=== PATIENT | male | born 1995 | race Caucasian/White ===

== ENCOUNTER 2017-02-08 16:54 | Observation (INO) | payer OTHER, SELFPAY ==
[~2017-02-08 16:54] MED LIST: ISOVUE-370 76%-LOCM 1 ML ONE; Iopamidol 370 76% 50 ML VIAL FS ONE
[2017-02-08 17:57] LABS: #Basophils 0.1 thou/uL (0.0-0.2); #Eosinphils 0.3 thou/uL (0.0-0.7); #Lymphocytes 2.7 thou/uL (1.20-3.40); #Monocytes 0.4 thou/uL (0.11-0.59); #Neutrophils 3.9 thou/uL (1.40-6.50); %Eosinophils 3.7 % (0.0-10.0); %Lymphocytes 36.4 % (21.0-51.0); Hematocrit 47.2 % (42.0-52.0); Mean Platelet Volume 9.6 fL (7.4-10.4); Red Blood Cell (RBC) Count 5.44 mill/uL (4.70-6.10); White Blood Cell (WBC) Count 7.4 thou/uL (4.8-10.8)
[2017-02-08 18:04] LABS: Prothrombin Time 13.2 SEC (12.0-14.7)
[2017-02-08 18:17] LABS: Lactic Acid - Sepsis 1.5 mmol/L (0.5-2.2)
[2017-02-08 18:29] LABS: ALT (SGPT) 93 U/L (8-55); AST (SGOT) 42 U/L (5-34); Alkaline Phosphatase 81 U/L (40-150); Anion Gap 9 mmol/L (10-20); BUN (Urea Nitrogen) 10 mg/dL (8.9-20.6); Bilirubin, Total 0.7 mg/dL (0.2-1.2); CK (CPK) 71 U/L (30-200); Calc. Creatinine Clearance 0 mL/min (70-130); Calcium 9.3 mg/dL (7.8-10.44); Carbon Dioxide 28 mmol/L (22-29); Chloride 104 mmol/L (98-107); Estimated GFR-MDRD Greater than 90; Globulin 3.2 g/dL (2.4-3.5); Protein, Total 7.5 g/dL (6.0-8.3)
--- NOTE | 2017-02-08 20:16 | CT ---
CT ABDOMEN AND PELVIS WITH IV CONTRAST 02/08/17 HISTORY: Rectal bleeding and abdominal pain. COMPARISON: None available. FINDINGS: There is mild enlargement of the spleen in AP dimensions, but this may be within normal limits for t he patient as the spleen is not enlarged in craniocaudal dimensions. AP dimension of the spleen bijan ures 15 cm. The lung bases, liver, pancreas, bilateral adrenal glands, kidneys, abdominal aorta, opacified small bowel, and urinary bladder demonstrate a normal CT appearance. The appendix is normal in caliber without CT evidence of appendicitis. There is suggested thickening involving the proximal ascending colon, but this is probably related to incomplete distention. No o bvious mass is appreciated in this region on CT evaluation. IMPRESSION: 1. No acute findings are seen in the abdomen or pelvis. 2. Suggested thickening of the ribeiro of most proximal ascending colon which is most likely attr ibutable to incomplete distention. The appendix is normal in caliber. POS: [facility]
[2017-02-08 22:21] VITALS: BMI 31.0
[2017-02-08] MEDS ORDERED: Ondansetron HCl/PF 4 MG/2 ML Vial IVP PRN (22:33)
[2017-02-08] MEDS ORDERED: Ondansetron ODT 4 MG TAB SL PRN (22:33)
[2017-02-09] MEDS ORDERED: Ondansetron ODT 4 MG TAB PO PRN (00:19)
[2017-02-09] MEDS ORDERED: Ondansetron HCl/PF 4 MG/2 ML Vial IVP PRN (00:19)
[2017-02-09] MEDS ORDERED: Acetaminophen 500 MG TAB PO PRN (00:19)
--- NOTE | 2017-02-09 01:43 | HP ---
DATE OF ADMISSION: 02/09/2017 PRIMARY CARE PROVIDER: Bharath Gonzalez M.D. CHIEF COMPLAINT: Blood in stool. HISTORY OF PRESENT ILLNESS: This is a 22-year-old male with a history of Henoch-Schonlein purpura or immunoglobulin A vasculitis who presents with bright red blood per rectum. The patient states he spontaneously had blood per rectum with some abdominal pain and cramping. The patient sta roddy he has never had anything similar to this episode. No prior colonoscopy or endoscopy and denies any chronic medication use. The patient does states his last treatment for his HSP with prednisone . Approximately 4 years prior to this evaluation after he noted multiple skin lesions. The patient denies any recent trauma, injury, travel history, diarrhea, fever, chills, dysuria or hematuria. T he patient denies any chronic anticoagulation use or exposure. The patient denies any specific richard ge to his appetite level, known colon disease or peptic ulcers. In the emergency room, the patient underwent general evaluation including CT of the abdomen and pelvis showing no acute findings. Init ial hemoglobin assessment showed a value of 16.1. The patient was noted with guaiac positive stool. PAST MEDICAL HISTORY: Henoch-Schonlein purpura. PAST SURGICAL HISTORY: Reviewed and negative. CURRENT MEDICATIONS: Reviewed and negative. ALLERGIES: NSAIDs. FAMILY HISTORY: No inheritable diseases as per patient report. SOCIAL HISTORY: Resides in [facility] [place]. 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 Alcohol use socially. No to bacco or illicit drug use. REVIEW OF SYSTEMS: The following complete review of systems was negative, unless otherwise mentione d in the HPI or below: Constitutional: Weight loss or gain, ability to conduct usual activities. Skin: Rash, itching. Eyes: Double vision, pain. ENT/Mouth: Nose bleeding, neck stiffness, pain, tenderness. Cardiovascular: Palpitations, dyspnea on exertion, orthopnea. Respiratory: Shortness of breath, wheezing, cough, hemoptysis, fever or night sweats. Gastrointestinal: Poor appetite, abdominal pain, heartburn, nausea, vomiting, constipation, or diar pamela. Genitourinary: Urgency, frequency, dysuria, nocturia. Musculoskeletal: Pain, swelling. Neurologic/Psychiatric: Anxiety, depression. Allergy/Immunologic: Skin rash, bleeding tendency. Otherwise, negative except as stated per HPI. PHYSICAL EXAMINATION: VITAL SIGNS: On admission, blood pressure 133/93, pulse 92, respiratory rate 16, temperature 98.1 d egrees Fahrenheit, O2 saturation 98% on room air. GENERAL APPEARANCE: This is a 22-year-old male, alert and oriented x3, pleasant, conversa nt, in no acute distress. HEENT: Pupils are equal, round, and reactive to light and accommodation. Extraocular muscles are i ntact. No scleral icterus, no conjunctival injection. Nares patent. OP is clear. Teeth in good r epair. NECK: Supple, no cervical adenopathy, no thyromegaly, no carotid bruits, no JVD appreciated. Cervi bertrand spine with full active and passive range of motion. CHEST: Lungs are clear to auscultation bilaterally. CARDIOVASCULAR: S1, S2, without noted murmur. ABDOMEN: Rounded with mild tenderness to palpation in the right and left lower quadrants. Bowel so unds are positive in all four quadrants. There is no palpable mass. No rebound or guarding noted. EXTREMITIES: Warm and dry with good turgor. No clubbing, cyanosis or asymmetric edema appreciated. Pulses palpable distally at the dorsalis pedis, posterior tibial, and popliteal arteries bilateral ly. Capillary refill less than 2 seconds. NEUROLOGIC: Cranial nerves II-XII are grossly intact. No focal or lateralizing signs appreciated. SKIN: No focal lesions or evidence of purpura. PERTINENT LABORATORY DATA AND X-RAY FINDINGS: Basic metabolic profile within normal limits. AST 42 , ALT of 93, alkaline phosphatase 81. Total CK of 71. Albumin 4.3. Lactic acid level 1.5. CBC wi thin normal limits. PT 13.2, INR 1.0, PTT 28.0. Stool Hemoccult positive x1. CT of the abdomen an d pelvis dated 02/08/2017 showed no acute process. ASSESSMENT AND PLAN: 1. Rectal bleeding. Exact etiology unclear. We will continue to monitor for recurrence. Initial hemoglobin 16.1. Questionable relationship to Henoch-Schonlein purpura. Consider GI consultation i f the patient has recurrence. The patient may need outpatient endoscopy if recurring. Avoid antico agulation and NSAIDs. 2. Abdominal pain. Suspect secondary to rectal bleeding. We will continue symptomatic and support emelina management. 3. Transaminitis. We will repeat LFTs in the a.m. 4. History of Henoch-Schonlein purpura. Stable currently. We will continue to monitor clinically. Questionable exacerbation. 5. Prophylaxis. Sequential compression devices while in bed. Pepcid 20 mg p.o. b.i.d. 6. Code status is FULL. Surrogate medical decision maker is the patient's mother.
[2017-02-09 05:32] LABS: Hematocrit 47.6 % (42.0-52.0); Mean Platelet Volume 9.4 fL (7.4-10.4); Neutrophil 54 % (42-75); Reactive Lymphocytes 4 % (0-10); Red Blood Cell (RBC) Count 5.47 mill/uL (4.70-6.10); White Blood Cell (WBC) Count 7.3 thou/uL (4.8-10.8)
[2017-02-09 05:37] LABS: Anion Gap 13 mmol/L (10-20); BUN (Urea Nitrogen) 10 mg/dL (8.9-20.6); Calc. Creatinine Clearance 204 mL/min (70-130); Carbon Dioxide 23 mmol/L (22-29); Chloride 105 mmol/L (98-107); Estimated GFR-MDRD Greater than 90
[2017-02-09 05:38] LABS: ALT (SGPT) 93 U/L (8-55); AST (SGOT) 39 U/L (5-34); Alkaline Phosphatase 83 U/L (40-150); Bilirubin, Total 0.8 mg/dL (0.2-1.2); Calcium 9.5 mg/dL (7.8-10.44); Globulin 3.1 g/dL (2.4-3.5); Protein, Total 7.3 g/dL (6.0-8.3)
[2017-02-09] MEDS ORDERED: Famotidine 20 MG TAB PO SCH (09:00)
[2017-02-09 10:00] LABS: Bilirubin Negative (Negative); Blood, Urine Negative (Negative); Glucose, Urine (Dipstick) Negative (Negative); Ketone, Urine Negative (Negative); Nitrite Negative (Negative); Protein, Urine (Dipstick) Negative (Neg-Trace); Urobilinogen 0.2 mg/dL (0.2-1.0)
--- NOTE | 2017-02-09 14:30 | PDOC.PN ---
- Subjective Encounter Start Date: 02/09/17 Encounter Start Time: 14:28 Patient seen and examined. No new complaints. No overnight events. No new episode of GI bleed. - Objective Resuscitation Status: Resuscitation Status FULL:Full Resuscitation MAR Reviewed: Yes Vital Signs & Weight: Vital Signs (12 hours) Temp Pulse Resp BP BP Pulse Ox 02/09/17 11:07 98.3 F 86 12 121/78 94 L 02/09/17 07:52 98.7 F 75 16 02/09/17 07:18 98.7 F 75 16 117/69 95 02/09/17 05:00 97.8 F 76 14 117/68 98 Weight Weight 222 lb 12.8 oz I&O: 02/08/17 02/09/17 02/10/17 06:59 06:59 06:59 Intake Total 250 Balance 250 Result Diagrams: 02/09/17 04:46 02/09/17 04:46 Phys Exam - Physical Examination Constitutional: NAD Respiratory: no wheezing, no rhonchi Cardiovascular: RRR, no rub Gastrointestinal: soft, non-tender, positive bowel sounds Musculoskeletal: no edema Neurological: moves all 4 limbs Dx/Plan (1) GI bleed Code(s): K92.2 - GASTROINTESTINAL HEMORRHAGE, UNSPECIFIED Status: Acute (2) Abdominal pain Code(s): R10.9 - UNSPECIFIED ABDOMINAL PAIN Status: Acute Comment: improved (3) HSP (Henoch Schonlein purpura) Code(s): D69.0 - ALLERGIC PURPURA Status: Chronic (4) Obesity (BMI 30.0-34.9) Code(s): E66.9 - OBESITY, UNSPECIFIED Status: Chronic (5) Abnormal LFTs Code(s): R79.89 - OTHER SPECIFIED ABNORMAL FINDINGS OF BLOOD CHEMISTRY Status : Acute Comment: ?fatty liver - Plan cont current plan of care, DVT proph w/SCDs * Await GI input * CT abd - neg * Change diet to clear liqd * DC later today if ok with GI Review of Systems - Review of Systems Respiratory: negative: Cough, Dry, Shortness of Breath, Hemoptysis, SOB with Excertion, Pleuritic Pain, Sputum, Wheezing Cardiovascular: negative: Chest Pain, Palpitations, Orthopnea, Paroxysmal Noc. Dyspnea, Edema, Light Headedness, Other - Medications/Allergies Allergies/Adverse Reactions: Allergies Allergy/AdvReac Type Severity Reaction Status Date / Time NSAIDS (Non-Steroidal Allergy Verified 02/08/17 22:41 Anti-Inflamma Medications: Current Medications Acetaminophen (Tylenol) 1,000 mg PO Q6H PRN PRN Reason: Headache/Fever or Mild Pain Famotidine (Pepcid) 20 mg PO BID ANGÉLICA Last Admin: 02/09/17 10:11 Dose: Not Given Ondansetron HCl (Zofran Odt) 4 mg PO Q6H PRN PRN Reason: Nausea/Vomiting Ondansetron HCl (Zofran) 4 mg IVP Q6H PRN PRN Reason: Nausea/Vomiting
[2017-02-09 16:39] VITALS: BP 130/77; TEMP 98.2
--- NOTE | 2017-02-09 18:13 | DIS ---
DATE OF ADMISSION: 02/08/2017 DATE OF DISCHARGE: 02/09/2017 DISCHARGE DISPOSITION: Home. FOLLOWUP: 1. Follow up with primary care physician, Dr. Gonzalez. 2. Follow up with Gastroenterology, Dr. Becerra in one week. The patient was advised to call his office for appointment. ALLERGIES: NONSTEROIDAL ANTI-INFLAMMATORY DRUGS. DISCHARGE MEDICATIONS: None. BRIEF HOSPITAL COURSE: The patient is a 22-year-old male with history of Henoch-Schonlein purpura, presented to the hospital with bleeding per rectum. Please refer to the history and physical dated 02/08/2017 for further details. The patient was admitted to the hospital with the diagnosis of rectal bleeding. His hemoglobin larry ined stable at 16.1-16.4. The patient had a normal bowel movement after his admission. Gastroenter ology was consulted. Gastroenterology has cleared the patient for discharge. He was advised to fol low up with them as an outpatient. He also had some abdominal discomfort on admission along with cr amping, mainly in the left lower quadrant that has resolved. FINAL DIAGNOSES: 1. Rectal bleeding, resolved. 2. Abdominal cramping/pain, resolved. 3. History of Henoch-Schonlein purpura, no active disease per patient report. 4. Obesity with a body mass index 31.1. 5. Slightly abnormal LFTs with AST of 42 and ALT of 93. Repeat labs as outpatient is recommended. 6. Plan of care was discussed with the patient and he stated understanding.
== END 2017-02-09 17:08 | disposition home or self-care (01) ==
LOC: ERS 16:54 → 2SW 22:03
PROVIDERS: ADMIT Internal Medicine; ATTEND Internal Medicine
DX: K62.5 Hemorrhage of anus and rectum (principal); R10.9 Unspecified abdominal pain; D69.0 Allergic purpura; R94.5 Abnormal results of liver function studies; E66.9 Obesity, unspecified; Z68.31 Body mass index [BMI] 31.0-31.9, adult; Z88.6 Allergy status to analgesic agent
CPT/HCPCS: 36415; 74177; 80053; 81003; 82274; 82550; 83605; 85007; 85025; 85027; 85610; 85730; 86850; 86900; 86901; 94760; G0378

== ENCOUNTER 2018-10-28 19:07 | Emergency (ER) | payer OTHER ==
[2018-10-28 19:31] LABS: #Basophils 0.1 thou/uL (0.0-0.2); #Eosinphils 0.3 thou/uL (0.0-0.7); #Lymphocytes 3.2 thou/uL (1.20-3.40); #Monocytes 0.5 thou/uL (0.11-0.59); #Neutrophils 6.2 thou/uL (1.40-6.50); %Eosinophils 2.9 % (0.0-10.0); %Lymphocytes 30.7 % (21.0-51.0); %Monocytes 5.2 % (0.0-10.0); %Neutrophils 60.2 % (42.0-75.0); Hemoglobin 16.3 g/dL (14.0-18.0); Mean Corpuscular HGB CONC 35.3 g/dL (32.0-36.0); Mean Corpuscular Hemoglobin 30.1 pg (27.0-31.0); Mean Corpuscular Volume 85.3 fL (78.0-98.0); Mean Platelet Volume 9.3 fL (7.4-10.4); Platelet Count 198 thou/uL (130-400); RBC Distribution Width 11.9 % (11.5-14.5); Red Blood Cell (RBC) Count 5.42 mill/uL (4.70-6.10); White Blood Cell (WBC) Count 10.3 thou/uL (4.8-10.8)
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
[2018-10-28 20:14] LABS: ALT (SGPT) 72 U/L (8-55); AST (SGOT) 40 U/L (5-34); Albumin 4.5 g/dL (3.5-5.0); Alcohol Less than 10 mg/dL (Less than 10); Alkaline Phosphatase 93 U/L (40-150); Anion Gap 16 mmol/L (10-20); BUN (Urea Nitrogen) 11 mg/dL (8.9-20.6); Bilirubin, Total 0.8 mg/dL (0.2-1.2); Calc. Creatinine Clearance 0 mL/min (70-130); Calcium 9.4 mg/dL (7.8-10.44); Carbon Dioxide 21 mmol/L (22-29); Chloride 106 mmol/L (98-107); Estimated GFR-MDRD Greater than 90; Globulin 2.9 g/dL (2.4-3.5); Glucose 114 mg/dL (70-105); Potassium 3.6 mmol/L (3.5-5.1); Protein, Total 7.4 g/dL (6.0-8.3); Sodium 139 mmol/L (136-145)
[2018-10-28] MEDS ORDERED: Ondansetron PF 4 MG/2 ML Vial ONE (21:36)
[2018-10-28] MEDS ORDERED: Morphine 4 MG/ML VIAL ONE (21:36)
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
== END 2018-10-28 23:46 | disposition home or self-care (01) ==
LOC: ERS 19:07
DX: S42.018A Nondisplaced fracture of sternal end of left clavicle, initial encounter for closed fracture (principal); S02.19XA Other fracture of base of skull, initial encounter for closed fracture; S01.312A Laceration without foreign body of left ear, initial encounter; V86.59XA Driver of other special all-terrain or other off-road motor vehicle injured in nontraffic accident, initial encounter
CPT/HCPCS: 70450; 70480; 71045; 72125; 80053; 80307; 85025; 86850; 86900; 86901; 96374; 96375; G0390; J2270; J2405